=== PATIENT | female | born 1970 | race Caucasian/White ===

== ENCOUNTER 2017-04-07 12:26 | Emergency (ER) | payer OTHER ==
[~2017-04-07] VITALS: Ht 160 cm; Wt 76.5 kg
[~2017-04-07 12:26] MED LIST: CARI1CAP2 PO; LEXA20TA PO; TYLETAB34 PO; Z.0.NO CURRENT MEDS
[2017-04-07 12:28] VITALS: BP 126/64; PULSE 82; RESP 16; TEMP 98.1; O2SAT 98
[2017-04-07 13:05] VITALS: BP 112/77; PULSE 74; RESP 22; TEMP 98.3; O2SAT 97
[2017-04-07 13:35] LABS: AUTOMATED NEUTROPHIL # 4.6 TH/MM3 (1.8-7.7); BASOPHIL % 0.4 % (0.0-2.0); EOSINOPHIL % 0.6 % (0.0-4.0); HEMATOCRIT 38.3 % (35.0-46.0); HEMOGLOBIN 13.1 GM/DL (11.6-15.3); LYMPH % 33.6 % (9.0-44.0); LYMPHOCYTE # 2.6 TH/MM3 (1.0-4.8); MEAN CORPUSCULAR HEMOGLOBIN 30.4 PG (27.0-34.0); MEAN CORPUSCULAR HGB CONC 34.1 % (32.0-36.0); MEAN PLATELET VOLUME 9.6 FL (7.0-11.0); MONO % 7.1 % (0.0-8.0); MONOCYTE # 0.6 TH/MM3 (0-0.9); NEUT % 58.3 % (16.0-70.0); PLATELET COUNT 240 TH/MM3 (150-450); RED BLOOD COUNT 4.31 MIL/MM3 (4.00-5.30); WHITE BLOOD COUNT 7.9 TH/MM3 (4.0-11.0)
[2017-04-07 13:50] LABS: BICARBONATE 26.9 MEQ/L (21.0-32.0); BLOOD UREA NITROGEN 11 MG/DL (7-18); CALCIUM 8.7 MG/DL (8.5-10.1); CHLORIDE 106 MEQ/L (98-107); CREATININE 0.61 MG/DL (0.50-1.00); GLOMERULAR FILTRATION RATE 107 ML/MIN (>89); GLUCOSE,RANDOM 98 MG/DL (74-106); SODIUM (NA) 140 MEQ/L (136-145)
[2017-04-07] MEDS ORDERED: HYDR-3133 PO (14:22)
[2017-04-07] MEDS ORDERED: QUET1TAB7 PO (14:22)
--- NOTE | 2017-04-07 14:40 | PD ---
HPI Chief Complaint: Depression Time Seen by Provider: 14:40 Travel History International Travel<30 days: No Contact w/Intl Traveler<30days: No Traveled to known affect area: No History of Present Illness HPI 46-year-old female with history of psychiatric issues presents the emergency department voluntarily requesting help with detox and reporting auditory hallucinations and suicidal thoughts. Patient states she lost her son approximately 1 month ago and has been often on her meds for the past month. Patient does not feel safe on the outside. Patient is requesting to try to get to the [facility] for more definitive treatment. She denies any medical issues. She takes no medications for medical problems. She has no pain currently. Patient has multiple allergies. PFSH Past Medical History Bipolar Disorder: Yes Diminished Hearing: No Psychiatric: Yes Respiratory: Yes (bronchitis) : 2 Para: 2 Past Surgical History Hysterectomy: Yes Tonsillectomy: Yes Social History Alcohol Use: Yes (rare) Tobacco Use: Yes (3 cigarrettes per day) Substance Use: No Allergies-Medications (Allergen,Severity, Reaction): Coded Allergies: NSAIDS (Non-Steroidal Anti-Inflamma (Verified Allergy, Mild, swelling, ) No Known Allergies (Verified Allergy, Mild, 03/03/08) risperidone (Verified Allergy, Mild, swelling, 03/25/17) diclofenac (Verified Allergy, Unknown, Swelling, 03/25/17) etodolac (Verified Allergy, Unknown, Swelling, 03/25/17) flurbiprofen (Verified Allergy, Unknown, Swelling, 03/25/17) ibuprofen (Verified Allergy, Unknown, Swelling, 03/25/17) indomethacin (Verified Allergy, Unknown, Swelling, 03/25/17) ketoprofen (Verified Allergy, Unknown, Swelling, 03/25/17) ketorolac (Verified Allergy, Unknown, Swelling, 03/25/17) naproxen (Verified Allergy, Unknown, Swelling, 03/25/17) oxaprozin (Verified Allergy, Unknown, Swelling, 03/25/17) tramadol (Verified Allergy, Unknown, swollen, 03/25/17) Reported Meds & Prescriptions Reported Meds & Active Scripts Active Reported Hydroxyzine HCl 25 Mg Tab 25 Mg PO QID Quetiapine (Quetiapine Fumarate) 25 Mg Tab 25 Mg PO DAILY Review of Systems Except as stated in HPI: all other systems reviewed are Neg General / Constitutional: No: Fever Eyes: No: Visual changes HENT: No: Headaches Cardiovascular: No: Chest Pain or Discomfort Respiratory: No: Shortness of Breath Gastrointestinal: No: Abdominal Pain Genitourinary: No: Dysuria Musculoskeletal: No: Pain Skin: No Rash Neurologic: No: Weakness Psychiatric: Positive: Depression, Suicidal Ideations, Mood Disorder, Substance Abuse, Other (Auditory hallucinations), No: Homicidal Ideation Endocrine: No: Polydipsia Hematologic/Lymphatic: No: Easy Bruising Physical Exam Narrative GENERAL: Patient appears in mild distress with anxiety. SKIN: Warm and dry. Normal color. Normal turgor. No rash. HEAD: Atraumatic. Normocephalic. EYES: Pupils equal and round. No scleral icterus. No injection or drainage. ENT: No nasal bleeding or discharge. Mucous membranes pink and moist. Pharynx is clear. Airway is patent. NECK: Trachea midline. Supple and nontender. CARDIOVASCULAR: Regular rate and rhythm. RESPIRATORY: No accessory muscle use. Clear to auscultation. Breath sounds equal bilaterally. MUSCULOSKELETAL: Extremities without clubbing, cyanosis, or edema. No obvious deformities. NEUROLOGICAL: Awake and alert. No obvious cranial nerve deficits. Motor grossly within normal limits. Five out of 5 muscle strength in the arms and legs. Normal speech. PSYCHIATRIC: Appropriate mood and affect; insight and judgment normal. Data Data Last Documented VS Vital Signs Date Time Temp Pulse Resp B/P (MAP) Pulse Ox O2 Delivery O2 Flow Rate FiO2 04/07/17 13:05 98.3 74 22 112/77 (89) 97 Room Air Orders Orders Complete Blood Count With Diff (04/07/17 12:32) Thyroid Stimulating Hormone (04/07/17 12:32) Basic Metabolic Panel (Bmp) (04/07/17 12:32) Urinalysis - C+S If Indicated (04/07/17 12:32) Ed Urine Pregnancytest Poc (04/07/17 12:32) Drug Screen, Random Urine (04/07/17 12:32) Alcohol (Ethanol) (04/07/17 12:32) Diet Regular Basic (04/07/17 Lunch) Labs Laboratory Tests Test 04/07/17 12:37 White Blood Count 7.9 TH/MM3 Red Blood Count 4.31 MIL/MM3 Hemoglobin 13.1 GM/DL Hematocrit 38.3 % Mean Corpuscular Volume 89.0 FL Mean Corpuscular Hemoglobin 30.4 PG Mean Corpuscular Hemoglobin Concent 34.1 % Red Cell Distribution Width 13.0 % Platelet Count 240 TH/MM3 Mean Platelet Volume 9.6 FL Neutrophils (%) (Auto) 58.3 % Lymphocytes (%) (Auto) 33.6 % Monocytes (%) (Auto) 7.1 % Eosinophils (%) (Auto) 0.6 % Basophils (%) (Auto) 0.4 % Neutrophils # (Auto) 4.6 TH/MM3 Lymphocytes # (Auto) 2.6 TH/MM3 Monocytes # (Auto) 0.6 TH/MM3 Eosinophils # (Auto) 0.0 TH/MM3 Basophils # (Auto) 0.0 TH/MM3 CBC Comment DIFF FINAL Differential Comment Blood Urea Nitrogen 11 MG/DL Creatinine 0.61 MG/DL Random Glucose 98 MG/DL Calcium Level 8.7 MG/DL Sodium Level 140 MEQ/L Potassium Level 3.4 MEQ/L Chloride Level 106 MEQ/L Carbon Dioxide Level 26.9 MEQ/L Anion Gap 7 MEQ/L Estimat Glomerular Filtration Rate 107 ML/MIN Thyroid Stimulating Hormone 3rd Gen 0.410 uIU/ML Ethyl Alcohol Level LESS THAN 3 MG/DL MDM Medical Decision Making Medical Screen Exam Complete: Yes Emergency Medical Condition: Yes Differential Diagnosis Suicidal ideations. Auditory hallucinations. Depression. Substance abuse. Narrative Course Patient appears medically stable at time of exam. Labs ordered as per psychiatric protocol. Patient is medically cleared for psychiatric evaluation. Condition: Stable Nelson Bass Apr 07, 2017 14:40
[2017-04-07 15:05] VITALS: BP 130/66; PULSE 71; RESP 20
[2017-04-07 15:53] LABS: BILIRUBIN, URINE NEG (NEG); BLOOD, URINE SMALL (NEG); GLUCOSE,URINE NEG (NEG); KETONE, URINE 10 mg/dL (NEG); MUCUS URINE MANY /lpf (OCC); NITRITE,URINE NEG (NEG); SQUAMOUS EPITHELIAL CELL URINE 11 /hpf (0-5); URINE COLOR YELLOW (YELLW/STRAW); URINE LEUKOCYTE ESTERASE NEG (NEG)
[2017-04-07] MEDS ORDERED: hydrOXYzine HCL 50 MG/ML VIAL IM ONE (18:15)
[2017-04-07] MEDS ORDERED: OLANZapine IM 10 MG VIAL IM ONE (18:15)
[2017-04-07] MEDS ORDERED: NICOTINE 21 MG/24 HR PATCH T-DERMAL ONE (18:15)
[2017-04-07] MEDS ORDERED: OLANZapine 10 MG TAB PO ONE (18:15)
[2017-04-08 01:06] VITALS: BP 91/63; PULSE 61; RESP 17; O2SAT 97
[2017-04-08 05:59] VITALS: BP 139/67; PULSE 65; RESP 18; O2SAT 97
--- NOTE | 2017-04-08 09:47 | PD ---
History of Present Illness Chief Complaint: Depression Time Seen by Provider: 09:30 Travel History International Travel<30 Days: No Contact w/Intl Traveler<30days: No Known affected area: No Legal Status Legal Status: Voluntary History of Present Illness: 46-year-old female presents voluntarily with history of alcohol abuse, depressive symptoms and suicidal ideation. Patient's son was killed by a drunk line haul truck driver approximately 6 months ago. Patient's father approximately 2 months ago. She has multiple depressive symptoms as well as suicidal ideation but she is verbally melisa for safety. She would like to get help with her drinking and her depressive symptoms. She is repeatedly and adamantly requesting transfer to the [facility] in [facility] for treatment. Apparently she had a bad experience here at [place] in the past. This physician spoke with Ruben bhupendra ordoñez, emergency painting department supervisor and he acknowledged her right to transfer to the [facility] and that we would provide transportation there if she is accepted. However, she was informed if her insurance company does not pay for the transportation, she will receive a invoice for the cost. PFSH Past Medical History Bipolar Disorder: Yes Patient Takes Glucophage: No Diminished Hearing: No Psychiatric: Yes Respiratory: Yes (bronchitis) ?: Not : 2 Para: 2 Past Surgical History Hysterectomy: Yes (2015 - Total per pt.) Tonsillectomy: Yes Psychiatric History Psychiatric History Hx Psychiatric Treatment: DENIES History of Inpatient Treatment: Yes Guns or firearms in home: No Social History Hx Alcohol Use: Yes (rare) Hx Tobacco Use: Yes (1.5PPD) Hx Substance Use: Yes Substance Use Type: Alcohol, Cocaine, Synth Opiates-Pain Pills Other Substances Used: Patient states she uses to make the voices go away, Hx of Substance Use Treatment: No Allergies-Medications (Allergen,Severity, Reaction): Coded Allergies: NSAIDS (Non-Steroidal Anti-Inflamma (Verified Allergy, Mild, swelling, ) No Known Allergies (Verified Allergy, Mild, 03/03/08) risperidone (Verified Allergy, Mild, swelling, 03/25/17) diclofenac (Verified Allergy, Unknown, Swelling, 03/25/17) etodolac (Verified Allergy, Unknown, Swelling, 03/25/17) flurbiprofen (Verified Allergy, Unknown, Swelling, 03/25/17) ibuprofen (Verified Allergy, Unknown, Swelling, 03/25/17) indomethacin (Verified Allergy, Unknown, Swelling, 03/25/17) ketoprofen (Verified Allergy, Unknown, Swelling, 03/25/17) ketorolac (Verified Allergy, Unknown, Swelling, 03/25/17) naproxen (Verified Allergy, Unknown, Swelling, 03/25/17) oxaprozin (Verified Allergy, Unknown, Swelling, 03/25/17) tramadol (Verified Allergy, Unknown, swollen, 03/25/17) Reported Meds & Prescriptions Reported Meds & Active Scripts Active Reported Hydroxyzine HCl 25 Mg Tab 25 Mg PO QID Quetiapine (Quetiapine Fumarate) 25 Mg Tab 25 Mg PO DAILY Review of Systems Psychiatric: COMPLAINS OF: Anxiety, Depression, Suicidal Ideation Except as stated in HPI: all other systems reviewed are Neg Mental Status Examination Appearance: Appropriate Consciousness: Alert Orientation: x4 Motor Activity: Normal gait Speech: Unremarkable Language: Adequate Fund of Knowledge: Adequate Attention and Concentration: Adequate Memory: Unremarkable Mood: Sad Affect: Sad Thought Process & Associations: Intact Thought Content: Appropriate Hallucination Type: None Delusion Type: None Suicidal Ideation: Yes Suicidal Plan: No Suicidal Intention: No Homicidal Ideation: No Homicidal Plan: No Homicidal Intention: No Insight: Adequate Judgment: Adequate MDM Medical Decision Making Medical Record Reviewed: Yes Assessment/Plan Patient interviewed at bedside with glass etcher Nelson. Electronic medical record reviewed. Case discussed with nurse Dacosta and Mr. Kendrick tiago. Patient is verbally melisa for safety at this time, in order to be transported to [place]. She is competent to do so. Orders Orders Complete Blood Count With Diff (04/07/17 12:32) Thyroid Stimulating Hormone (04/07/17 12:32) Basic Metabolic Panel (Bmp) (04/07/17 12:32) Urinalysis - C+S If Indicated (04/07/17 12:32) Ed Urine Pregnancytest Poc (04/07/17 12:32) Drug Screen, Random Urine (04/07/17 12:32) Alcohol (Ethanol) (04/07/17 12:32) Diet Regular Basic (04/07/17 Lunch) Diet Regular Basic (04/07/17 Dinner) Hydroxyzine Hcl Inj (Vistaril Inj) (04/07/17 18:15) Olanzapine Inj (Zyprexa Inj) (04/07/17 18:15) Nicotine 21 Mg Patch.24 Hr (Habitrol 21 (04/07/17 18:15) Hydroxyzine Pamoate (Vistaril) (04/07/17 18:15) Olanzapine (Zyprexa) (04/07/17 18:15) Diet Regular Basic (04/08/17 Breakfast) Results Vital Signs Date Time Temp Pulse Resp B/P (MAP) Pulse Ox O2 Delivery O2 Flow Rate FiO2 04/08/17 05:59 65 18 139/67 (91) 97 Room Air 04/08/17 01:06 61 17 91/63 (72) 97 Room Air 04/07/17 15:05 71 20 130/66 (87) Room Air 04/07/17 13:05 98.3 74 22 112/77 (89) 97 Room Air 04/07/17 12:28 98.1 82 16 126/64 (84) 98 Room Air Laboratory Tests Test 04/07/17 12:37 04/07/17 15:20 White Blood Count 7.9 Red Blood Count 4.31 Hemoglobin 13.1 Hematocrit 38.3 Mean Corpuscular Volume 89.0 Mean Corpuscular Hemoglobin 30.4 Mean Corpuscular Hemoglobin Concent 34.1 Red Cell Distribution Width 13.0 Platelet Count 240 Mean Platelet Volume 9.6 Neutrophils (%) (Auto) 58.3 Lymphocytes (%) (Auto) 33.6 Monocytes (%) (Auto) 7.1 Eosinophils (%) (Auto) 0.6 Basophils (%) (Auto) 0.4 Neutrophils # (Auto) 4.6 Lymphocytes # (Auto) 2.6 Monocytes # (Auto) 0.6 Eosinophils # (Auto) 0.0 Basophils # (Auto) 0.0 CBC Comment DIFF FINAL Differential Comment Blood Urea Nitrogen 11 Creatinine 0.61 Random Glucose 98 Calcium Level 8.7 Sodium Level 140 Potassium Level 3.4 Chloride Level 106 Carbon Dioxide Level 26.9 Anion Gap 7 Estimat Glomerular Filtration Rate 107 Thyroid Stimulating Hormone 3rd Gen 0.410 Ethyl Alcohol Level LESS THAN 3 Urine Color YELLOW Urine Turbidity HAZY Urine pH 6.0 Urine Specific [place] 1.030 Urine Protein TRACE Urine Glucose (UA) NEG Urine Ketones 10 Urine Occult Blood SMALL Urine Nitrite NEG Urine Bilirubin NEG Urine Urobilinogen 2.0 Urine Leukocyte Esterase NEG Urine RBC 5 Urine WBC 1 Urine Squamous Epithelial Cells 11 Urine Mucus MANY Microscopic Urinalysis Comment CULT NOT INDICATED Urine Opiates Screen NEG Urine Barbiturates Screen NEG Urine Amphetamines Screen NEG Urine Benzodiazepines Screen NEG Urine Cocaine Screen POS Urine Cannabinoids Screen NEG Diagnosis Primary Impression: Adjustment disorder with depressed mood Additional Impression: Alcohol abuse Condition: Stable Problem Qualifiers Jaden Gambino MD Apr 08, 2017 09:47
[2017-04-08 11:28] VITALS: BP 108/75; PULSE 70; RESP 18; TEMP 98.3; O2SAT 99
--- NOTE | 2017-04-08 12:03 | PD ---
Physical Exam Time Seen by Provider: 12:02 Narrative Patient is being discharged to the [facility] for further treatment and evaluation. Data Data Last Documented VS Vital Signs Date Time Temp Pulse Resp B/P (MAP) Pulse Ox O2 Delivery O2 Flow Rate FiO2 04/08/17 11:28 98.3 70 18 108/75 (86) 99 Room Air Orders Orders Complete Blood Count With Diff (04/07/17 12:32) Thyroid Stimulating Hormone (04/07/17 12:32) Basic Metabolic Panel (Bmp) (04/07/17 12:32) Urinalysis - C+S If Indicated (04/07/17 12:32) Ed Urine Pregnancytest Poc (04/07/17 12:32) Drug Screen, Random Urine (04/07/17 12:32) Alcohol (Ethanol) (04/07/17 12:32) Diet Regular Basic (04/07/17 Lunch) Diet Regular Basic (04/07/17 Dinner) Hydroxyzine Hcl Inj (Vistaril Inj) (04/07/17 18:15) Olanzapine Inj (Zyprexa Inj) (04/07/17 18:15) Nicotine 21 Mg Patch.24 Hr (Habitrol 21 (04/07/17 18:15) Hydroxyzine Pamoate (Vistaril) (04/07/17 18:15) Olanzapine (Zyprexa) (04/07/17 18:15) Diet Regular Basic (04/08/17 Breakfast) Diet Regular Basic (04/08/17 Lunch) Labs Laboratory Tests Test 04/07/17 12:37 04/07/17 15:20 White Blood Count 7.9 TH/MM3 Red Blood Count 4.31 MIL/MM3 Hemoglobin 13.1 GM/DL Hematocrit 38.3 % Mean Corpuscular Volume 89.0 FL Mean Corpuscular Hemoglobin 30.4 PG Mean Corpuscular Hemoglobin Concent 34.1 % Red Cell Distribution Width 13.0 % Platelet Count 240 TH/MM3 Mean Platelet Volume 9.6 FL Neutrophils (%) (Auto) 58.3 % Lymphocytes (%) (Auto) 33.6 % Monocytes (%) (Auto) 7.1 % Eosinophils (%) (Auto) 0.6 % Basophils (%) (Auto) 0.4 % Neutrophils # (Auto) 4.6 TH/MM3 Lymphocytes # (Auto) 2.6 TH/MM3 Monocytes # (Auto) 0.6 TH/MM3 Eosinophils # (Auto) 0.0 TH/MM3 Basophils # (Auto) 0.0 TH/MM3 CBC Comment DIFF FINAL Differential Comment Blood Urea Nitrogen 11 MG/DL Creatinine 0.61 MG/DL Random Glucose 98 MG/DL Calcium Level 8.7 MG/DL Sodium Level 140 MEQ/L Potassium Level 3.4 MEQ/L Chloride Level 106 MEQ/L Carbon Dioxide Level 26.9 MEQ/L Anion Gap 7 MEQ/L Estimat Glomerular Filtration Rate 107 ML/MIN Thyroid Stimulating Hormone 3rd Gen 0.410 uIU/ML Ethyl Alcohol Level LESS THAN 3 MG/DL Urine Color YELLOW Urine Turbidity HAZY Urine pH 6.0 Urine Specific [place] 1.030 Urine Protein TRACE mg/dL Urine Glucose (UA) NEG mg/dL Urine Ketones 10 mg/dL Urine Occult Blood SMALL Urine Nitrite NEG Urine Bilirubin NEG Urine Urobilinogen 2.0 MG/DL Urine Leukocyte Esterase NEG Urine RBC 5 /hpf Urine WBC 1 /hpf Urine Squamous Epithelial Cells 11 /hpf Urine Mucus MANY /lpf Microscopic Urinalysis Comment CULT NOT INDICATED Urine Opiates Screen NEG Urine Barbiturates Screen NEG Urine Amphetamines Screen NEG Urine Benzodiazepines Screen NEG Urine Cocaine Screen POS Urine Cannabinoids Screen NEG MDM Supervised Visit with DEYVI: No Narrative Course Patient is being discharged to the [facility] for further treatment and evaluation. Diagnosis Primary Impression: Adjustment disorder with depressed mood Additional Impression: Alcohol abuse Disposition: 65 DISC TO PSYCH CARE FACILITY Condition: Stable [facility] Harris Apr 08, 2017 12:03
== END 2017-04-08 13:20 ==
LOC: NEPJ 12:26
DX: F10.10 Alcohol abuse, uncomplicated (principal); F43.21 Adjustment disorder with depressed mood; R44.0 Auditory hallucinations; F31.9 Bipolar disorder, unspecified; F17.210 Nicotine dependence, cigarettes, uncomplicated; F12.90 Cannabis use, unspecified, uncomplicated; Z88.6 Allergy status to analgesic agent
CPT/HCPCS: 80048; 80307; 81001; 84443; 85025

== ENCOUNTER 2017-08-17 19:50 | Emergency (ER) | payer OTHER ==
[~2017-08-17] VITALS: Ht 165.1 cm; Wt 71.0 kg
[~2017-08-17 19:50] MED LIST changes: -CARI1CAP2 PO; +HYDR-3133 PO; -LEXA20TA PO; +QUET1TAB7 PO; -TYLETAB34 PO; -Z.0.NO CURRENT MEDS
[2017-08-17 20:13] VITALS: BP 118/79; PULSE 76; RESP 22; TEMP 97.5; O2SAT 100
--- NOTE | 2017-08-17 21:32 | EKG ---
Date Performed: 08/17/2017 Time Performed: 20:21:29 PTAGE: 47 years EKG: Sinus rhythm NORMAL ECG NO PREVIOUS TRACING DOCTOR: Gabe Mckeon Interpretating Date/Time 08/17/2017 21:31:05
[2017-08-17] MEDS ORDERED: LORazepam 2 MG/ML VIAL IV PUSH ONE (22:30)
[2017-08-17] MEDS ORDERED: SODIUM CHLORIDE 0.9% FLUSH 10 ML FLUSH IVF PRN (22:30)
--- NOTE | 2017-08-17 22:33 | PD ---
HPI Chief Complaint: Respiratory Symptoms Time Seen by Provider: 22:17 Travel History International Travel<30 days: No Contact w/Intl Traveler<30days: No Traveled to known affect area: No History of Present Illness HPI 47-year-old white female presents emergency department we will complains of intermittent shortness of breath for the past week. She states that she has anxiety but does not feel acutely anxious. She states the episodes of becoming more frequent. She states now she also has some tightness into her chest times. She denies any fever chills. No nausea vomiting. No diaphoresis. No history of recent travel or leg swelling. She does smoke cigarettes. She does not take control. She has had a hysterectomy in the past. No family history of heart disease. Mother last year of lung cancer. Mother is alive and healthy. Patient has a history of anxiety and bipolar. Denies hypertension diabetes. PFSH Past Medical History Narrative Medical Anxiety, bipolar Bipolar Disorder: Yes Diminished Hearing: No Psychiatric: Yes Respiratory: Yes (bronchitis) Immunizations Current: Yes Tetanus Vaccination: < 5 Years Influenza Vaccination: No ?: Not : 2 Para: 2 Past Surgical History Narrative Surgical Hysterectomy Hysterectomy: Yes (2013) Tonsillectomy: Yes Social History Alcohol Use: Yes (rare) Tobacco Use: Yes (1.5PPD) Substance Use: Yes Allergies-Medications (Allergen,Severity, Reaction): Coded Allergies: NSAIDS (Non-Steroidal Anti-Inflamma (Verified Allergy, Mild, swelling, ) No Known Allergies (Verified Allergy, Mild, 08/17/17) risperidone (Verified Allergy, Mild, swelling, 08/17/17) diclofenac (Verified Allergy, Unknown, Swelling, 08/17/17) etodolac (Verified Allergy, Unknown, Swelling, 08/17/17) flurbiprofen (Verified Allergy, Unknown, Swelling, 08/17/17) ibuprofen (Verified Allergy, Unknown, Swelling, 08/17/17) indomethacin (Verified Allergy, Unknown, Swelling, 08/17/17) ketoprofen (Verified Allergy, Unknown, Swelling, 08/17/17) ketorolac (Verified Allergy, Unknown, Swelling, 08/17/17) naproxen (Verified Allergy, Unknown, Swelling, 08/17/17) oxaprozin (Verified Allergy, Unknown, Swelling, 08/17/17) tramadol (Verified Allergy, Unknown, swollen, 08/17/17) Reported Meds & Prescriptions Reported Meds & Active Scripts Active Reported Hydroxyzine HCl 25 Mg Tab 25 Mg PO QID Quetiapine (Quetiapine Fumarate) 25 Mg Tab 25 Mg PO DAILY Review of Systems General / Constitutional: No: Fever Eyes: No: Visual changes HENT: No: Headaches Cardiovascular: Positive: Chest Pain or Discomfort Respiratory: Positive: Shortness of Breath, Pleuritic Pain, No: Cough Gastrointestinal: No: Nausea, Vomiting, Abdominal Pain Genitourinary: No: Dysuria Musculoskeletal: No: Arthralgias, Cramping, Edema, Pain Skin: No Rash Neurologic: No: Weakness Psychiatric: No: Depression Endocrine: No: Polydipsia Hematologic/Lymphatic: No: Easy Bruising Physical Exam Narrative GENERAL: Well-developed, well-nourished in no apparent distress. Nontoxic appearing. Patient is anxious appearing. HEAD: Normocephalic, atraumatic. EYES: Pupils equal round and reactive. Extraocular motions intact. No scleral icterus. No injection or drainage. ENT: Nose clear. Throat without erythema, tonsillar hypertrophy or exudate. Uvula midline. Airway patent. NECK: Trachea midline. Supple, nontender, moves head freely. No central bony tenderness or spasm. CARDIOVASCULAR: Regular rate and rhythm without murmurs, gallops, or rubs. RESPIRATORY: Clear to auscultation. Breath sounds equal bilaterally. No wheezes , rales, or rhonchi. GASTROINTESTINAL: Abdomen soft, non-tender, nondistended. No hepato-splenomegaly , or palpable masses. No guarding. EXTREMITIES: No clubbing, cyanosis, or edema. No joint tenderness. No calf tenderness. No Homans sign. Intact sensation with good distal pulses. BACK: Nontender without deformity. No flank tenderness. NEUROLOGICAL: Awake, alert and oriented x 3 .Cranial nerves grossly intact. Motor and sensory grossly within normal limits. Normal speech. Data Data Last Documented VS Vital Signs Date Time Temp Pulse Resp B/P (MAP) Pulse Ox O2 Delivery O2 Flow Rate FiO2 08/17/17 23:15 68 14 95 Room Air 08/17/17 20:13 97.5 118/79 (92) Orders Orders Electrocardiogram (08/17/17 20:21) Basic Metabolic Panel (Bmp) (08/17/17 22:24) Complete Blood Count With Diff (08/17/17 22:24) Troponin I (08/17/17 22:24) Chest, Single Ap (08/17/17 22:24) Ecg Monitoring (08/17/17 22:24) Iv Access Insert/Monitor (08/17/17 22:24) Oximetry (08/17/17 22:24) Sodium Chloride 0.9% Flush (Ns Flush) (08/17/17 22:30) Lorazepam Inj (Ativan Inj) (08/17/17 22:30) Ed Discharge Order (08/17/17 23:58) Labs Laboratory Tests Test 08/17/17 22:40 White Blood Count 8.3 TH/MM3 Red Blood Count 4.66 MIL/MM3 Hemoglobin 13.8 GM/DL Hematocrit 41.1 % Mean Corpuscular Volume 88.2 FL Mean Corpuscular Hemoglobin 29.5 PG Mean Corpuscular Hemoglobin Concent 33.5 % Red Cell Distribution Width 13.4 % Platelet Count 269 TH/MM3 Mean Platelet Volume 8.5 FL Neutrophils (%) (Auto) 44.2 % Lymphocytes (%) (Auto) 45.4 % Monocytes (%) (Auto) 7.4 % Eosinophils (%) (Auto) 2.3 % Basophils (%) (Auto) 0.7 % Neutrophils # (Auto) 3.7 TH/MM3 Lymphocytes # (Auto) 3.8 TH/MM3 Monocytes # (Auto) 0.6 TH/MM3 Eosinophils # (Auto) 0.2 TH/MM3 Basophils # (Auto) 0.1 TH/MM3 CBC Comment DIFF FINAL Differential Comment Blood Urea Nitrogen 15 MG/DL Creatinine 0.78 MG/DL Random Glucose 85 MG/DL Calcium Level 8.8 MG/DL Sodium Level 139 MEQ/L Potassium Level 4.2 MEQ/L Chloride Level 105 MEQ/L Carbon Dioxide Level 28.8 MEQ/L Anion Gap 5 MEQ/L Estimat Glomerular Filtration Rate 80 ML/MIN Troponin I LESS THAN 0.02 NG/ML MDM Medical Decision Making Medical Screen Exam Complete: Yes Emergency Medical Condition: Yes Medical Record Reviewed: Yes Interpretation(s) Laboratory Tests Test 08/17/17 22:40 White Blood Count 8.3 TH/MM3 Red Blood Count 4.66 MIL/MM3 Hemoglobin 13.8 GM/DL Hematocrit 41.1 % Mean Corpuscular Volume 88.2 FL Mean Corpuscular Hemoglobin 29.5 PG Mean Corpuscular Hemoglobin Concent 33.5 % Red Cell Distribution Width 13.4 % Platelet Count 269 TH/MM3 Mean Platelet Volume 8.5 FL Neutrophils (%) (Auto) 44.2 % Lymphocytes (%) (Auto) 45.4 % Monocytes (%) (Auto) 7.4 % Eosinophils (%) (Auto) 2.3 % Basophils (%) (Auto) 0.7 % Neutrophils # (Auto) 3.7 TH/MM3 Lymphocytes # (Auto) 3.8 TH/MM3 Monocytes # (Auto) 0.6 TH/MM3 Eosinophils # (Auto) 0.2 TH/MM3 Basophils # (Auto) 0.1 TH/MM3 CBC Comment DIFF FINAL Differential Comment Blood Urea Nitrogen 15 MG/DL Creatinine 0.78 MG/DL Random Glucose 85 MG/DL Calcium Level 8.8 MG/DL Sodium Level 139 MEQ/L Potassium Level 4.2 MEQ/L Chloride Level 105 MEQ/L Carbon Dioxide Level 28.8 MEQ/L Anion Gap 5 MEQ/L Estimat Glomerular Filtration Rate 80 ML/MIN Troponin I LESS THAN 0.02 NG/ML EKG: Normal sinus rhythm. Normal intervals. No abnormal ST-T wave changes. Differential Diagnosis Differential diagnosis: Acute coronary syndrome, [place], anxiety, electrolyte abnormality, pneumonia, DVT Narrative Course IV access is obtained. Patient was given Ativan 1 mg IV. Routine laboratory tests including CBC, chemistry, troponin, chest x-ray and EKG. Patient has a allergy to NSAIDs aspirin has been held. Patient appears very anxious. She does not have any clinical signs of DVT. Patient's heart score is 1. Patient's laboratory testing EKG have been reviewed. Patient's symptoms are inconsistent with acute coronary syndrome. She has had improvement of her symptoms with Ativan. The patient is medically stable for discharge. This is noncardiac chest pain, anxiety Diagnosis Primary Impression: Noncardiac chest pain Additional Impression: Anxiety Patient Instructions: General Instructions Additional Instructions: Rest. Follow-up with your doctor the next 2-3 days for recheck. Return to the ER if any problems. Med/Other Pt SpecificInfo: No Meds Exist/No RX given Disposition: 01 DISCHARGE HOME Condition: Stable Karan Rapp Aug 17, 2017 22:33
[2017-08-17 22:35] VITALS: O2SAT 98
--- NOTE | 2017-08-17 23:04 | RADRPT ---
EXAM DATE: 08/17/2017 10:39 PM EDT AGE/SEX: 47 years / Female INDICATIONS: Short of breath. CLINICAL DATA: This is the patient's initial encounter. Patient reports that signs and symptoms have been present for 1 day and indicates a pain score of 4/10. MEDICAL/SURGICAL HISTORY: Asthma. Hysterectomy. COMPARISON: No prior exams available for comparison. FINDINGS: A single AP view of the chest demonstrates the lungs to be symmetrically aerated without evidence of mass, infiltrate or effusion. The cardiomediastinal contours are unremarkable. Osseous structures a re intact. CONCLUSION: No acute cardiopulmonary process. Electronically signed by: Kiko Lewis MD 08/17/2017 11:03 PM EDT
[2017-08-17 23:15] VITALS: PULSE 68; RESP 14; O2SAT 95
[2017-08-17 23:19] LABS: AUTOMATED NEUTROPHIL # 3.7 TH/MM3 (1.8-7.7); BASOPHIL # 0.1 TH/MM3 (0-0.2); BASOPHIL % 0.7 % (0.0-2.0); EOSINOPHIL # 0.2 TH/MM3 (0-0.4); EOSINOPHIL % 2.3 % (0.0-4.0); HEMATOCRIT 41.1 % (35.0-46.0); HEMOGLOBIN 13.8 GM/DL (11.6-15.3); LYMPH % 45.4 % (9.0-44.0); LYMPHOCYTE # 3.8 TH/MM3 (1.0-4.8); MEAN CELL VOLUME 88.2 FL (80.0-100.0); MEAN CORPUSCULAR HEMOGLOBIN 29.5 PG (27.0-34.0); MEAN CORPUSCULAR HGB CONC 33.5 % (32.0-36.0); MEAN PLATELET VOLUME 8.5 FL (7.0-11.0); MONO % 7.4 % (0.0-8.0); MONOCYTE # 0.6 TH/MM3 (0-0.9); NEUT % 44.2 % (16.0-70.0); PLATELET COUNT 269 TH/MM3 (150-450); RED BLOOD COUNT 4.66 MIL/MM3 (4.00-5.30); RED CELL DISTRIBUTION WIDTH 13.4 % (11.6-17.2); WHITE BLOOD COUNT 8.3 TH/MM3 (4.0-11.0)
[2017-08-17 23:46] LABS: BICARBONATE 28.8 MEQ/L (21.0-32.0); BLOOD UREA NITROGEN 15 MG/DL (7-18); CALCIUM 8.8 MG/DL (8.5-10.1); CHLORIDE 105 MEQ/L (98-107); CREATININE 0.78 MG/DL (0.50-1.00); GLOMERULAR FILTRATION RATE 80 ML/MIN (>89); GLUCOSE,RANDOM 85 MG/DL (74-106); SODIUM (NA) 139 MEQ/L (136-145)
[2017-08-17 23:51] LABS: TROPONIN I LESS THAN 0.02 NG/ML (0.02-0.05)
== END 2017-08-18 00:38 | disposition home or self-care (01) ==
LOC: NEPD 19:50
DX: R07.89 Other chest pain (principal); F41.9 Anxiety disorder, unspecified; F17.210 Nicotine dependence, cigarettes, uncomplicated; Z80.1 Family history of malignant neoplasm of trachea, bronchus and lung
CPT/HCPCS: 71045; 80048; 84484; 85025; 93005; 96374; 99285; J2060